=== PATIENT | female | born 1980 | race African-American/Black ===

== ENCOUNTER 2017-06-01 17:36 | Emergency (ER) | payer OTHER ==
[~2017-06-01] VITALS: Ht 172.7 cm; Wt 56.7 kg
--- NOTE | 2017-06-01 18:36 | Emergency Room Report ---
History of Present Illness General Chief Complaint: Pain Source: Patient Present Illness HPI 36-year-old female presents to the emergency department complaining of localized for 10 in severity right shoulder pain that radiates up towards the right side of the neck times one day status post fall. Patient reports pain is exacerbated upon movement of the right arm. She denies open wounds. She denies hitting her head or loss of consciousness. She denies previous injury to the extremity. Denies midline neck or back pain. Denies numbness tingling or loss of sensation or gross motor movements of the extremities, incontinence of bowel or bladder. Denies CP, Palpitations, LOC, AMS, dizziness, Changes in Vision, Sensation, paresthesias, or a sudden severe headache. Allergies: Coded Allergies: No Known Allergies (Unverified , 06/01/17) Patient History Past Medical History: see triage record Past Surgical History: none Pertinent Family History: none Last Menstrual Period: 05/30/17 Now: No Reviewed Nursing Documentation: PMH: Agreed, PSxH: Agreed Nursing Documentation-PMH Past Medical History: No Stated History Review of Systems All Other Systems: negative except mentioned in HPI Physical Exam Vital Signs Date Time Temp Pulse Resp B/P (MAP) Pulse Ox O2 Delivery O2 Flow Rate FiO2 06/01/17 17:33 77 16 123/82 98 Room Air Sp02 EP Interpretation: reviewed, normal General Appearance: no apparent distress, alert, GCS 15, non-toxic Head: normocephalic, atraumatic Eyes: bilateral eye normal inspection, bilateral eye PERRL ENT: hearing grossly normal, normal voice Neck: full range of motion, no bony tend, supple/symm/no masses, tender lateral - right sided trapezius muscle tenderness into the right shoulder. Respiratory: lungs clear, normal breath sounds, speaking full sentences Cardiovascular #1: regular rate, rhythm, normal capillary refill Cardiovascular #2: 2+ radial (R), 2+ radial (L) Rectal: deferred Musculoskeletal: back normal, gait/station normal, normal range of motion - with pain of the right shoulder, tender - TTP to all aspects of the right shoulder, FROm with pain, no clicking, no obvious deformity, no obvious swelling , no erythema or bruises, pt. is NVI, no weakness noted. Neurologic: alert, oriented x3, responsive, motor strength/tone normal, sensory intact, normal gait, speech normal Psychiatric: judgement/insight normal, memory normal, mood/affect normal Skin: normal color, no rash, warm/dry, well hydrated Medical Decision Making PA Attestation Dr. friedman is my supervising Physician whom patient management has been discussed with. Diagnostic Impression: Primary Impression: Sprain of shoulder, right Qualified Codes: S43.401A - Unspecified sprain of right shoulder joint, initial encounter ER Course 36-year-old female presents to the emergency department complaining of localized for 10 in severity right shoulder pain that radiates up towards the right side of the neck times one day status post fall. Patient reports pain is exacerbated upon movement of the right arm. She denies open wounds. She denies hitting her head or loss of consciousness. She denies previous injury to the extremity. Denies midline neck or back pain. Denies numbness tingling or loss of sensation or gross motor movements of the extremities, incontinence of bowel or bladder. Denies CP, Palpitations, LOC, AMS, dizziness, Changes in Vision, Sensation, paresthesias, or a sudden severe headache. Ddx considered but are not limited to Fracture, dislocation, contusion, Sprain/ Strain/Spasm, Epidural abscess, Neoplastic mets. Vital signs: are WNL, pt. is afebrile H&PE are most consistent with musculoskeletal injury will perform imaging to r/ o fractures/dislocations. ORDERS: - X-ray Right Shoulder 3 views - negative for fx, Dislocation, or significant soft tissue injury, per preliminary read in ED by Dr. Benito - interpretation is scribed by PA. ED INTERVENTIONS: - - Right arm Sling applied by agricultural technical officer. Pt. remains neurovascularly intact. - --- Pt. removed arm sling several minutes after application. pt. was requesting to have her arm splinted just like the patient next to her was having done. d/w pt. that imaging did not show fractures, and her physical exam does not represent significant injury at this time and that the arm splint she is requesting is for elbow injuries. pt. requested to have her arm wrapped with an reece wrap. d/w pt .that wrapping her arm with an reece wrap will not provide any benefit to the area she is having symptoms at ( the shoulder) and that it is not a clinical standard for shoulder injuries. --pt. insisted that sling was not comfortable and wanted an reece wrap. --Pt. was furnished an Reece wrap. DISCHARGE: At this time pt. is stable for d/c to home. Will provide printed patient care instructions, and any necessary prescriptions. Care plan and follow up instructions have been discussed with the patient prior to discharge. Last Vital Signs Date Time Temp Pulse Resp B/P (MAP) Pulse Ox O2 Delivery O2 Flow Rate FiO2 06/01/17 17:33 77 16 123/82 98 Room Air Disposition: HOME, SELF-CARE Condition: Stable Scripts Ibuprofen* (MOTRIN*) 600 Mg Tablet 600 MG ORAL THREE TIMES A DAY, #30 TAB 0 Refills Prov: Beba Salguero 06/01/17 Referrals: [facility],REFERR[facility] (PCP) Patient Instructions: Shoulder Sprain Additional Instructions: Take medications as directed. Follow up with a Primary Care Provider in 3-5 days, even if your symptoms have resolved. --Please review list of primary care clinics, if you do not already have a primary care provider Return sooner to ED if new symptoms occur, or current symptoms become worse. - Please note that this Emergency Department Report was dictated using Modern [employer] telehealth technology software, occasionally this can lead to erroneous entry secondary to interpretation by the dictation equipment. Beba Salguero Jun 01, 2017 18:36
[2017-06-01] MEDS ORDERED: IBUPROFEN600 MG ORAL (18:38)
[2017-06-01 19:10] VITALS: BP 146/98
--- NOTE | 2017-06-02 10:52 | Diagnostic Imaging Report ---
Indication: PAIN STATUS post fall Technique: 3 views of the left shoulder Comparison: None Findings: No acute fractures or dislocations. Joint spaces are preserved. Impression: Negative
== END 2017-06-01 19:10 | disposition home or self-care (01) ==
LOC: EDBD 17:36 → EMR 18:29
DX: S43.401A Unspecified sprain of right shoulder joint, initial encounter (principal); W19.XXXA Unspecified fall, initial encounter; Y92.89 Other specified places as the place of occurrence of the external cause
CPT/HCPCS: 99283